=== PATIENT | female | born 1985 ===

== ENCOUNTER 2022-03-25 13:30 | Inpatient (IN) | payer OTHER ==
[~2022-03-25] VITALS: Ht 167.6 cm; Wt 90.7 kg
[2022-04-02] MEDS ORDERED: PRENATAL + DHA1 EAC1 PO (02:25)
== END 2022-04-04 13:36 | disposition home or self-care (01) | DRG 768 ==
LOC: OB/GYN 04-02 04:37 → LDR 04-02 04:37 → O/R 04-02 19:03 → OB/GYN 04-02 19:08
PROVIDERS: ADMIT Obstetrics & Gynecology; ATTEND Obstetrics & Gynecology
PROC: 0UQC7ZZ Repair Cervix, Via Natural or Artificial Opening (ICD-10-PCS; 2022-04-02)
PROC: 0KQM0ZZ Repair Perineum Muscle, Open Approach (ICD-10-PCS; 2022-04-02)
PROC: 0UQMXZZ Repair Vulva, External Approach (ICD-10-PCS; 2022-04-02)
PROC: 0UQG7ZZ Repair Vagina, Via Natural or Artificial Opening (ICD-10-PCS; 2022-04-02)
PROC: 4A1HXCZ Monitoring of Products of Conception, Cardiac Rate, External Approach (ICD-10-PCS; 2022-04-02)
PROC: 10E0XZZ Delivery of Products of Conception, External Approach (ICD-10-PCS; principal; 2022-04-02 17:30)
DX: O71.4 Obstetric high vaginal laceration alone (principal); Z37.0 Single live birth; O71.3 Obstetric laceration of cervix; O71.82 Other specified trauma to perineum and vulva; Z3A.39 39 weeks gestation of pregnancy; Z20.822 Contact with and (suspected) exposure to COVID-19